=== PATIENT | female | born 1950 | race Two or more races ===

== ENCOUNTER 2021-08-12 02:52 | Inpatient (IN) | payer MEDICARE, OTHER ==
[~2021-08-12] VITALS: Ht 137.2 cm; Wt 81.6 kg
[2021-08-12 04:09] LABS: BASOPHILS % 0.3 % (0.0-2.0); HEMATOCRIT. 40.8 % (36.0-48.0); HEMOGLOBIN. 13.2 g/dL (12.0-16.0); LYMPHOCYTES % 24.2 % (20.0-50.0); MEAN CORPUSCULAR HEMOGLOBIN 25.2 pg (28.0-32.0); MEAN CORPUSCULAR VOLUME 78.1 fL (81.0-99.0); MEAN PLATELET VOLUME 9.1 fl (7.4-10.4); MONOCYTES % 7.9 % (2.0-8.0); NEUTROPHILS % 67.6 % (40.0-76.0); PLATELET 250 x1000/uL (130-400); RED BLOOD CELL COUNT 5.22 mill/uL (4.2-5.4); RED CELL DISTRIBUTION WIDTH 17.1 % (11.6-14.6)
[2021-08-12 04:21] LABS: CHLORIDE 104 mEq/L (98-107)
[2021-08-12] MEDS ORDERED: ENOXAPARIN 100MG/ML SYR SUBCUT NR (05:00)
[2021-08-12] MEDS ORDERED: CEFTRIAXONE 1 G PREMIX 50 ML IV NR (06:00)
[2021-08-12] MEDS ORDERED: AZITHROMYCIN 500MG/250ML 250 ML IV NR (06:30)
[2021-08-12 10:05] VITALS: BP 115/61
[2021-08-12] MEDS ORDERED: CEFTRIAXONE 500 MG in DEXTROSE 5% WATER 50 ML IV SCH (10:45)
[2021-08-12] MEDS ORDERED: TOPUD MT (11:05)
[2021-08-12] MEDS ORDERED: FUROSEMIDE 40MG/4ML VIAL IVP NR (11:54)
[2021-08-12 11:57] VITALS: BP 115/61
[2021-08-12] MEDS ORDERED: AZITHROMYCIN 500MG/250ML 250 ML IV SCH (12:00)
[2021-08-12] MEDS: ASPIRIN 81MG EC TABLET PO SCH (12:08)
[2021-08-12 13:39] LABS: BG BASE EXCESS 0.9 mmol/L (-2.0-2.0); BG CARBOXYHEMOGLOBIN 0.3 % (0.5-1.5); BG FRACTION INSPIRED OXYGEN 100; BG HCO3 ACT 25.7 mmol/L (22.0-26.0); BG METHEMOGLOBIN 0.1 % (0.0-1.5); BG OXYHEMOGLOBIN 95.6 % (94.0-97.0); BG PCO2 41.9 mmHg (35.0-45.0); BG PH 7.406 (7.350-7.450); BG PO2 83.3 mmHg (75.0-100.0); BG SAMPLE SITE LEFT BRACHIAL; BG TOTAL HEMOGLOBIN 13.2 g/dL (12.0-18.0); BG VENT MODE MASK - NRB
[2021-08-12 15:58] VITALS: BP 104/54
[2021-08-12 20:00] VITALS: BP 112/64
[2021-08-12] MEDS: METOPROLOL TARTRATE 25MG TABLET PO SCH (20:16)
[2021-08-12] MEDS: ASCORBIC ACID 500 MG TABLET PO SCH (20:16)
[2021-08-12] MEDS: ENOXAPARIN 80MG/0.8ML SYR SUBCUT SCH (20:17)
[2021-08-12 20:51] LABS: BASOPHILS % 0.2 % (0.0-2.0); EOSINOPHILS % 0.1 % (0.0-5.0); HEMATOCRIT. 37.2 % (36.0-48.0); HEMOGLOBIN. 12.1 g/dL (12.0-16.0); LYMPHOCYTES % 21.3 % (20.0-50.0); MEAN CORPUSCULAR HEMOGLOBIN 25.5 pg (28.0-32.0); MEAN CORPUSCULAR VOLUME 78.5 fL (81.0-99.0); MONOCYTES % 10.1 % (2.0-8.0); NEUTROPHILS % 68.3 % (40.0-76.0); PLATELET 251 x1000/uL (130-400); RED BLOOD CELL COUNT 4.74 mill/uL (4.2-5.4)
[2021-08-12 21:00] LABS: PROTHROMBIN TIME 10.4 sec (9.6-11.0)
[2021-08-12 21:06] LABS: CHLORIDE 107 mEq/L (98-107)
[2021-08-12 21:15] LABS: CREATINE KINASE 732 IU/L (26-192)
[2021-08-12 21:17] LABS: CREATINE KINASE MB FRACTION 7.3 ng/mL (0.5-3.6)
[2021-08-13] VITALS: BP 95/44
[2021-08-13 04:00] VITALS: BP 104/48
[2021-08-13] MEDS: CEFTRIAXONE 1,000 MG in DEXTROSE 5% WATER 50 ML IV SCH (05:11)
[2021-08-13 08:00] VITALS: BP 121/55
[2021-08-13] MEDS: ASCORBIC ACID 500 MG TABLET PO SCH ×2 (08:10→20:36)
[2021-08-13] MEDS: ASPIRIN 81MG EC TABLET PO SCH (08:10)
[2021-08-13] MEDS: DEXAMETHASONE 10 MG/ML VIAL IV SCH (08:10)
[2021-08-13] MEDS: ZINC SULFATE 220 MG ( 50 ) CAPSULE PO SCH (08:10)
[2021-08-13] MEDS: AZITHROMYCIN 500 MG in DEXT 5% WATER 250 ML IV SCH (08:11)
[2021-08-13] MEDS: ENOXAPARIN 80MG/0.8ML SYR SUBCUT SCH ×2 (08:11→20:36)
[2021-08-13] MEDS: METOPROLOL TARTRATE 25MG TABLET PO SCH ×2 (08:11→20:36)
[2021-08-13 08:26] LABS: PROTHROMBIN TIME 10.5 sec (9.6-11.0)
[2021-08-13 11:56] LABS: BG BASE EXCESS 1.6 mmol/L (-2.0-2.0); BG CARBOXYHEMOGLOBIN 0.3 % (0.5-1.5); BG DEOXYHEMOGLOBIN 5.8 % (0.0-5.0); BG FRACTION INSPIRED OXYGEN 60; BG HCO3 ACT 26.3 mmol/L (22.0-26.0); BG METHEMOGLOBIN 0.3 % (0.0-1.5); BG OXYGEN SATURATION 94.2 % (92.0-98.5); BG OXYHEMOGLOBIN 93.6 % (94.0-97.0); BG PCO2 41.8 mmHg (35.0-45.0); BG PH 7.417 (7.350-7.450); BG SAMPLE SITE LEFT RADIAL; BG TOTAL HEMOGLOBIN 13.1 g/dL (12.0-18.0); BG VENT MODE MASK - SIMPLE
[2021-08-13 12:00] VITALS: BP 117/93
[2021-08-13] MEDS: PHENYLEPH/PRAMOXIN/GLYCR/PET RECTAL CREAM 26GM PR SCH ×3 (12:00→23:15)
[2021-08-13 16:00] VITALS: BP 107/66
[2021-08-13 20:00] VITALS: BP 101/56
[2021-08-14] VITALS: BP 112/64
[2021-08-14 04:00] VITALS: BP 107/62
[2021-08-14] MEDS: CEFTRIAXONE 1,000 MG in DEXTROSE 5% WATER 50 ML IV SCH (05:02)
[2021-08-14] MEDS: PHENYLEPH/PRAMOXIN/GLYCR/PET RECTAL CREAM 26GM PR SCH ×3 (05:03→17:03)
[2021-08-14 08:00] VITALS: BP 145/67
[2021-08-14 08:05] LABS: HEMATOCRIT. 34.8 % (36.0-48.0); HEMOGLOBIN. 11.5 g/dL (12.0-16.0); MEAN CORPUSCULAR VOLUME 78.4 fL (81.0-99.0); PLATELET 286 x1000/uL (130-400); RED BLOOD CELL COUNT 4.44 mill/uL (4.2-5.4); RED CELL DISTRIBUTION WIDTH 17.3 % (11.6-14.6)
[2021-08-14 08:28] LABS: CHLORIDE 107 mEq/L (98-107)
[2021-08-14] MEDS: ENOXAPARIN 80MG/0.8ML SYR SUBCUT SCH (09:00)
[2021-08-14] MEDS: ASPIRIN 81MG EC TABLET PO SCH (09:16)
[2021-08-14] MEDS: METOPROLOL TARTRATE 25MG TABLET PO SCH ×2 (09:16→21:21)
[2021-08-14] MEDS: DEXAMETHASONE 10 MG/ML VIAL IV SCH (09:16)
[2021-08-14] MEDS: ZINC SULFATE 220 MG ( 50 ) CAPSULE PO SCH (09:17)
[2021-08-14] MEDS: ASCORBIC ACID 500 MG TABLET PO SCH ×2 (09:17→21:21)
[2021-08-14] MEDS: AZITHROMYCIN 500 MG in DEXT 5% WATER 250 ML IV SCH (09:17)
[2021-08-14 09:27] LABS: BG CARBOXYHEMOGLOBIN 0.5 % (0.5-1.5); BG DEOXYHEMOGLOBIN 5.8 % (0.0-5.0); BG FRACTION INSPIRED OXYGEN 40; BG HCO3 ACT 28.7 mmol/L (22.0-26.0); BG METHEMOGLOBIN 0.3 % (0.0-1.5); BG OXYGEN SATURATION 94.2 % (92.0-98.5); BG OXYHEMOGLOBIN 93.4 % (94.0-97.0); BG PCO2 43.6 mmHg (35.0-45.0); BG PH 7.436 (7.350-7.450); BG PO2 71.4 mmHg (75.0-100.0); BG SAMPLE SITE LEFT RADIAL; BG TOTAL HEMOGLOBIN 12.7 g/dL (12.0-18.0); BG VENT MODE MASK - SIMPLE
[2021-08-14 12:00] VITALS: BP 126/69
[2021-08-14 12:30] LABS: PLATELET ESTIMATE NORMAL
[2021-08-14 16:00] VITALS: BP 131/57
[2021-08-14 20:00] VITALS: BP 154/71
[2021-08-14] MEDS: ENOXAPARIN 40MG/0.4ML SYR SUBCUT SCH (21:20)
[2021-08-15] VITALS (7 sets, daily range): BP systolic 107–154; BP diastolic 47–87
[2021-08-15] MEDS: CEFTRIAXONE 1,000 MG in DEXTROSE 5% WATER 50 ML IV SCH (04:57)
[2021-08-15 05:31] LABS: HEMATOCRIT. 37.2 % (36.0-48.0); HEMOGLOBIN. 12.1 g/dL (12.0-16.0); MEAN CORPUSCULAR HEMOGLOBIN 25.7 pg (28.0-32.0); MEAN CORPUSCULAR VOLUME 78.9 fL (81.0-99.0); MEAN PLATELET VOLUME 8.9 fl (7.4-10.4); PLATELET 332 x1000/uL (130-400); RED BLOOD CELL COUNT 4.72 mill/uL (4.2-5.4); RED CELL DISTRIBUTION WIDTH 17.2 % (11.6-14.6)
[2021-08-15 05:42] LABS: CHLORIDE 107 mEq/L (98-107)
[2021-08-15] MEDS: PHENYLEPH/PRAMOXIN/GLYCR/PET RECTAL CREAM 26GM PR SCH ×4 (06:04→17:11)
[2021-08-15] MEDS: AZITHROMYCIN 500 MG in DEXT 5% WATER 250 ML IV SCH (08:10)
[2021-08-15] MEDS: AMLODIPINE 2.5MG TABLET PO SCH (08:11)
[2021-08-15] MEDS: ASPIRIN 81MG EC TABLET PO SCH (08:11)
[2021-08-15] MEDS: METOPROLOL TARTRATE 25MG TABLET PO SCH ×2 (08:11→21:39)
[2021-08-15] MEDS: DEXAMETHASONE 10 MG/ML VIAL IV SCH (08:11)
[2021-08-15] MEDS: ZINC SULFATE 220 MG ( 50 ) CAPSULE PO SCH (08:11)
[2021-08-15] MEDS: ASCORBIC ACID 500 MG TABLET PO SCH ×2 (08:11→21:39)
[2021-08-15 12:35] LABS: PLATELET ESTIMATE NORMAL
[2021-08-15] MEDS: ENOXAPARIN 40MG/0.4ML SYR SUBCUT SCH (21:40)
[2021-08-16] VITALS: BP 165/73
[2021-08-16] MEDS: CLONIDINE 0.1MG TABLET PO PRN (00:30)
[2021-08-16 04:00] VITALS: BP 133/48
[2021-08-16] MEDS: CEFTRIAXONE 1,000 MG in DEXTROSE 5% WATER 50 ML IV SCH (05:28)
[2021-08-16] MEDS: PHENYLEPH/PRAMOXIN/GLYCR/PET RECTAL CREAM 26GM PR SCH ×3 (05:33→11:51)
[2021-08-16 08:00] VITALS: BP 157/63
[2021-08-16] MEDS: METOPROLOL TARTRATE 25MG TABLET PO SCH ×2 (08:28→21:18)
[2021-08-16] MEDS: DEXAMETHASONE 10 MG/ML VIAL IV SCH (08:28)
[2021-08-16] MEDS: ASPIRIN 81MG EC TABLET PO SCH (08:29)
[2021-08-16] MEDS: ZINC SULFATE 220 MG ( 50 ) CAPSULE PO SCH (08:29)
[2021-08-16] MEDS: AMLODIPINE 2.5MG TABLET PO SCH (08:29)
[2021-08-16] MEDS: ASCORBIC ACID 500 MG TABLET PO SCH ×2 (08:29→21:17)
[2021-08-16] MEDS ORDERED: AZITHROMYCIN 500 MG TABLET PO SCH (09:00)
[2021-08-16 12:00] VITALS: BP 150/75
[2021-08-16 16:00] VITALS: BP 157/78
[2021-08-16 20:07] VITALS: BP 164/79
[2021-08-17] VITALS (7 sets, daily range): BP systolic 111–177; BP diastolic 52–96
[2021-08-17] MEDS: CEFTRIAXONE 1,000 MG in DEXTROSE 5% WATER 50 ML IV SCH (05:25)
[2021-08-17] MEDS: CLONIDINE 0.1MG TABLET PO PRN ×2 (05:40→23:21)
[2021-08-17 06:00] LABS: CLARITY URINE CLOUDY (CLEAR); COLOR URINE ORANGE (YELLOW); KETONES URINE NEGATIVE (NEGATIVE); LEUKOCYTE ESTERASE URINE 1+ (NEGATIVE); NITRITE URINE NEGATIVE (NEGATIVE); OCCULT BLOOD URINE 3+ (NEGATIVE); PH URINE 5.5 (4.5-8.0); PROTEIN URINE 1+ (NEGATIVE); SPECIFIC GRAVITY URINE 1.023 (1.005-1.030); UROBILINOGEN URINE 0.2 E.U./dL (0.2-1.0)
[2021-08-17] MEDS: PHENYLEPH/PRAMOXIN/GLYCR/PET RECTAL CREAM 26GM PR SCH ×4 (06:16→17:17)
[2021-08-17 07:33] LABS: PARTIAL THROMBOPLASTIN TIME 27.1 sec (23.4-31.0); PROTHROMBIN TIME 11.2 sec (9.6-11.0)
[2021-08-17 07:36] LABS: CHLORIDE 108 mEq/L (98-107)
[2021-08-17 07:39] LABS: HEMATOCRIT. 36.3 % (36.0-48.0); HEMOGLOBIN. 12.1 g/dL (12.0-16.0); MEAN CORPUSCULAR VOLUME 77.8 fL (81.0-99.0); MEAN PLATELET VOLUME 8.9 fl (7.4-10.4); PLATELET 396 x1000/uL (130-400); RED BLOOD CELL COUNT 4.67 mill/uL (4.2-5.4); RED CELL DISTRIBUTION WIDTH 16.8 % (11.6-14.6)
[2021-08-17] MEDS: ASPIRIN 81MG EC TABLET PO SCH (08:42)
[2021-08-17] MEDS: ZINC SULFATE 220 MG ( 50 ) CAPSULE PO SCH (08:42)
[2021-08-17] MEDS: ASCORBIC ACID 500 MG TABLET PO SCH ×2 (08:42→20:58)
[2021-08-17] MEDS: AMLODIPINE 2.5MG TABLET PO SCH (08:42)
[2021-08-17] MEDS: METOPROLOL TARTRATE 25MG TABLET PO SCH ×2 (08:43→20:59)
[2021-08-17] MEDS: DEXAMETHASONE 10 MG/ML VIAL IV SCH (09:18)
[2021-08-17 17:42] LABS: PLATELET ESTIMATE NORMAL
[2021-08-18] VITALS: BP 179/83
[2021-08-18 04:00] VITALS: BP 132/72
[2021-08-18] MEDS: PHENYLEPH/PRAMOXIN/GLYCR/PET RECTAL CREAM 26GM PR SCH ×4 (05:39→17:33)
[2021-08-18 06:43] LABS: HEMATOCRIT. 35.6 % (36.0-48.0); HEMOGLOBIN. 12.1 g/dL (12.0-16.0); MEAN CORPUSCULAR HEMOGLOBIN 26.4 pg (28.0-32.0); MEAN CORPUSCULAR VOLUME 77.9 fL (81.0-99.0); MEAN PLATELET VOLUME 8.7 fl (7.4-10.4); PLATELET 416 x1000/uL (130-400); RED BLOOD CELL COUNT 4.57 mill/uL (4.2-5.4); RED CELL DISTRIBUTION WIDTH 17.2 % (11.6-14.6)
[2021-08-18 06:50] LABS: CHLORIDE 106 mEq/L (98-107)
[2021-08-18 08:00] VITALS: BP 187/58
[2021-08-18] MEDS: ZINC SULFATE 220 MG ( 50 ) CAPSULE PO SCH (08:34)
[2021-08-18] MEDS: METOPROLOL TARTRATE 25MG TABLET PO SCH ×2 (08:34→20:50)
[2021-08-18] MEDS: AMLODIPINE 2.5MG TABLET PO SCH (08:35)
[2021-08-18] MEDS: DEXAMETHASONE 10 MG/ML VIAL IV SCH (08:35)
[2021-08-18] MEDS: ASCORBIC ACID 500 MG TABLET PO SCH ×2 (08:35→20:50)
[2021-08-18] MEDS: ASPIRIN 81MG EC TABLET PO SCH (08:35)
[2021-08-18 10:09] LABS: BG BASE EXCESS 4.3 mmol/L (-2.0-2.0); BG CARBOXYHEMOGLOBIN 0.9 % (0.5-1.5); BG DEOXYHEMOGLOBIN 5.8 % (0.0-5.0); BG FRACTION INSPIRED OXYGEN 32; BG HCO3 ACT 28.5 mmol/L (22.0-26.0); BG METHEMOGLOBIN 0.3 % (0.0-1.5); BG OXYGEN SATURATION 94.1 % (92.0-98.5); BG PO2 68.8 mmHg (75.0-100.0); BG SAMPLE SITE LEFT BRACHIAL; BG TOTAL HEMOGLOBIN 13.6 g/dL (12.0-18.0); BG VENT MODE NASAL CANNULA
[2021-08-18 12:00] VITALS: BP 155/82
[2021-08-18 13:42] LABS: PLATELET ESTIMATE SLIGHTLY INCREASED
[2021-08-18 16:00] VITALS: BP 148/65
[2021-08-18 20:00] VITALS: BP 122/62
[2021-08-19 00:19] VITALS: BP 132/77
[2021-08-19 04:00] VITALS: BP 168/81
[2021-08-19] MEDS: PHENYLEPH/PRAMOXIN/GLYCR/PET RECTAL CREAM 26GM PR SCH ×4 (05:47→17:51)
[2021-08-19] MEDS: CLONIDINE 0.1MG TABLET PO PRN (05:47)
[2021-08-19 07:01] LABS: HEMATOCRIT. 38.5 % (36.0-48.0); HEMOGLOBIN. 12.9 g/dL (12.0-16.0); MEAN CORPUSCULAR HEMOGLOBIN 26.2 pg (28.0-32.0); MEAN PLATELET VOLUME 8.5 fl (7.4-10.4); PLATELET 514 x1000/uL (130-400); RED BLOOD CELL COUNT 4.93 mill/uL (4.2-5.4)
[2021-08-19 08:00] VITALS: BP 154/74
[2021-08-19 09:00] LABS: CHLORIDE 104 mEq/L (98-107)
[2021-08-19] MEDS: ASCORBIC ACID 500 MG TABLET PO SCH ×2 (09:19→22:00)
[2021-08-19] MEDS: METOPROLOL TARTRATE 25MG TABLET PO SCH ×2 (09:19→22:01)
[2021-08-19] MEDS: DEXAMETHASONE 10 MG/ML VIAL IV SCH (09:19)
[2021-08-19] MEDS: AMLODIPINE 2.5MG TABLET PO SCH (09:19)
[2021-08-19] MEDS: ZINC SULFATE 220 MG ( 50 ) CAPSULE PO SCH (09:19)
[2021-08-19] MEDS: ASPIRIN 81MG EC TABLET PO SCH (09:19)
[2021-08-19 12:00] VITALS: BP 134/68
[2021-08-19 13:00] LABS: BG BASE EXCESS 3.8 mmol/L (-2.0-2.0); BG CARBOXYHEMOGLOBIN 0.7 % (0.5-1.5); BG DEOXYHEMOGLOBIN 8.1 % (0.0-5.0); BG FRACTION INSPIRED OXYGEN 21; BG HCO3 ACT 27.3 mmol/L (22.0-26.0); BG METHEMOGLOBIN 0.1 % (0.0-1.5); BG OXYGEN SATURATION 91.8 % (92.0-98.5); BG OXYHEMOGLOBIN 91.1 % (94.0-97.0); BG PCO2 37.5 mmHg (35.0-45.0); BG PO2 59.7 mmHg (75.0-100.0); BG SAMPLE SITE LEFT BRACHIAL; BG TOTAL HEMOGLOBIN 13.6 g/dL (12.0-18.0); BG VENT MODE ROOM AIR
[2021-08-19 15:21] LABS: PLATELET ESTIMATE INCREASED
[2021-08-19 16:00] VITALS: BP 142/88
[2021-08-19 20:00] VITALS: BP 148/78
[2021-08-19] MEDS ORDERED: AMLO2.5T45 PO (21:01)
[2021-08-19] MEDS ORDERED: METO25TA6 PO (21:01)
[2021-08-19] MEDS ORDERED: ASPI-1406 PO (21:01)
[2021-08-19] MEDS ORDERED: PRED10TA23 PO (21:01)
[2021-08-20] VITALS: BP 138/70
[2021-08-20 04:00] VITALS: BP 155/74
[2021-08-20] MEDS: PHENYLEPH/PRAMOXIN/GLYCR/PET RECTAL CREAM 26GM PR SCH ×4 (06:00→18:21)
[2021-08-20 08:00] VITALS: BP 111/43
[2021-08-20] MEDS: DEXAMETHASONE 10 MG/ML VIAL IV SCH (08:27)
[2021-08-20] MEDS: ASCORBIC ACID 500 MG TABLET PO SCH ×2 (08:32→20:59)
[2021-08-20] MEDS: ZINC SULFATE 220 MG ( 50 ) CAPSULE PO SCH (08:32)
[2021-08-20] MEDS: ASPIRIN 81MG EC TABLET PO SCH (08:32)
[2021-08-20] MEDS: AMLODIPINE 2.5MG TABLET PO SCH (08:33)
[2021-08-20] MEDS: METOPROLOL TARTRATE 25MG TABLET PO SCH ×2 (08:33→20:59)
[2021-08-20 12:00] VITALS: BP 95/63
[2021-08-20 16:00] VITALS: BP 137/62
[2021-08-20 20:00] VITALS: BP 165/70
[2021-08-21] VITALS: BP 149/73
[2021-08-21 04:00] VITALS: BP 160/50
[2021-08-21] MEDS: PHENYLEPH/PRAMOXIN/GLYCR/PET RECTAL CREAM 26GM PR SCH ×5 (05:13→23:53)
[2021-08-21 08:00] VITALS: BP 171/68
[2021-08-21] MEDS: DEXAMETHASONE 10 MG/ML VIAL IV SCH (08:57)
[2021-08-21] MEDS: METOPROLOL TARTRATE 25MG TABLET PO SCH ×2 (08:57→21:43)
[2021-08-21] MEDS: ZINC SULFATE 220 MG ( 50 ) CAPSULE PO SCH (08:58)
[2021-08-21] MEDS: ASPIRIN 81MG EC TABLET PO SCH (08:58)
[2021-08-21] MEDS: ASCORBIC ACID 500 MG TABLET PO SCH ×2 (08:58→21:43)
[2021-08-21] MEDS: AMLODIPINE 2.5MG TABLET PO SCH (08:58)
[2021-08-21 12:00] VITALS: BP 144/61
[2021-08-21 16:00] VITALS: BP 107/51
[2021-08-21 20:18] VITALS: BP 123/46
[2021-08-22] VITALS: BP 131/52
[2021-08-22 04:00] VITALS: BP 151/60
[2021-08-22] MEDS: PHENYLEPH/PRAMOXIN/GLYCR/PET RECTAL CREAM 26GM PR SCH ×3 (06:09→18:00)
[2021-08-22 08:00] VITALS: BP 163/79
[2021-08-22] MEDS: METOPROLOL TARTRATE 25MG TABLET PO SCH ×2 (09:32→21:28)
[2021-08-22] MEDS: DEXAMETHASONE 10 MG/ML VIAL IV SCH (09:32)
[2021-08-22] MEDS: ASPIRIN 81MG EC TABLET PO SCH (09:32)
[2021-08-22] MEDS: ASCORBIC ACID 500 MG TABLET PO SCH ×2 (09:33→21:28)
[2021-08-22] MEDS: ZINC SULFATE 220 MG ( 50 ) CAPSULE PO SCH (09:33)
[2021-08-22] MEDS: AMLODIPINE 2.5MG TABLET PO SCH (09:33)
[2021-08-22 12:00] VITALS: BP 116/65
[2021-08-22 14:30] LABS: BG BASE EXCESS 0.3 mmol/L (-2.0-2.0); BG CARBOXYHEMOGLOBIN 1.1 % (0.5-1.5); BG DEOXYHEMOGLOBIN 6.6 % (0.0-5.0); BG FRACTION INSPIRED OXYGEN 21; BG METHEMOGLOBIN 0.1 % (0.0-1.5); BG OXYGEN SATURATION 93.3 % (92.0-98.5); BG OXYHEMOGLOBIN 92.2 % (94.0-97.0); BG PH 7.442 (7.350-7.450); BG PO2 66.8 mmHg (75.0-100.0); BG SAMPLE SITE RIGHT BRACHIAL; BG TOTAL HEMOGLOBIN 14.4 g/dL (12.0-18.0); BG VENT MODE ROOM AIR
[2021-08-22 16:00] VITALS: BP 106/72
[2021-08-22 20:00] VITALS: BP 116/57
[2021-08-22] MEDS: AMLODIPINE 5MG TABLET PO SCH (21:27)
[2021-08-23] VITALS: BP 140/53
[2021-08-23] MEDS: PHENYLEPH/PRAMOXIN/GLYCR/PET RECTAL CREAM 26GM PR SCH ×4 (00:28→17:01)
[2021-08-23 04:00] VITALS: BP 116/55
[2021-08-23 08:00] VITALS: BP_SYST 139; BP_SYST 157; BP_DIAS 51; BP_DIAS 72
[2021-08-23] MEDS: ASPIRIN 81MG EC TABLET PO SCH (08:26)
[2021-08-23] MEDS: AMLODIPINE 5MG TABLET PO SCH ×2 (08:26→21:00)
[2021-08-23] MEDS: METOPROLOL TARTRATE 25MG TABLET PO SCH ×2 (08:26→21:00)
[2021-08-23] MEDS: ASCORBIC ACID 500 MG TABLET PO SCH ×2 (08:27→21:05)
[2021-08-23] MEDS: ZINC SULFATE 220 MG ( 50 ) CAPSULE PO SCH (08:27)
[2021-08-23] MEDS: DEXAMETHASONE 10 MG/ML VIAL IV SCH (08:27)
[2021-08-23 12:00] VITALS: BP 157/72
[2021-08-23 16:00] VITALS: BP 108/49
[2021-08-23 20:00] VITALS: BP 104/51
[2021-08-24] VITALS (7 sets, daily range): BP systolic 92–131; BP diastolic 42–61
[2021-08-24] MEDS: PHENYLEPH/PRAMOXIN/GLYCR/PET RECTAL CREAM 26GM PR SCH ×5 (01:20→23:48)
[2021-08-24 06:51] LABS: BASOPHILS % 0.1 % (0.0-2.0); HEMOGLOBIN. 13.5 g/dL (12.0-16.0); LYMPHOCYTES % 8.1 % (20.0-50.0); MEAN PLATELET VOLUME 9.1 fl (7.4-10.4); MONOCYTES % 7.1 % (2.0-8.0); NEUTROPHILS % 84.7 % (40.0-76.0); PLATELET 517 x1000/uL (130-400); RED BLOOD CELL COUNT 5.19 mill/uL (4.2-5.4); RED CELL DISTRIBUTION WIDTH 17.4 % (11.6-14.6)
[2021-08-24 07:05] LABS: CHLORIDE 105 mEq/L (98-107)
[2021-08-24] MEDS: AMLODIPINE 5MG TABLET PO SCH ×2 (09:00→21:00)
[2021-08-24] MEDS: METOPROLOL TARTRATE 25MG TABLET PO SCH ×2 (09:00→21:00)
[2021-08-24] MEDS: ASCORBIC ACID 500 MG TABLET PO SCH ×2 (10:50→21:24)
[2021-08-24] MEDS: ZINC SULFATE 220 MG ( 50 ) CAPSULE PO SCH (10:50)
[2021-08-24] MEDS: METHYLPREDNISOLONE SOD SUCC 40 MG/ML VIAL IV SCH (10:50)
[2021-08-24] MEDS: ASPIRIN 81MG EC TABLET PO SCH (10:50)
[2021-08-25] MEDS: ACETAMINOPHEN 325MG TABLET PO PRN (00:11)
[2021-08-25 04:00] VITALS: BP 94/43
[2021-08-25] MEDS: PHENYLEPH/PRAMOXIN/GLYCR/PET RECTAL CREAM 26GM PR SCH ×3 (05:16→18:00)
[2021-08-25 07:22] LABS: HEMATOCRIT. 39.7 % (36.0-48.0); HEMOGLOBIN. 12.8 g/dL (12.0-16.0); MEAN CORPUSCULAR HEMOGLOBIN 25.7 pg (28.0-32.0); MEAN CORPUSCULAR VOLUME 79.6 fL (81.0-99.0); MEAN PLATELET VOLUME 9.3 fl (7.4-10.4); PLATELET 415 x1000/uL (130-400); RED BLOOD CELL COUNT 4.99 mill/uL (4.2-5.4); RED CELL DISTRIBUTION WIDTH 17.5 % (11.6-14.6)
[2021-08-25 08:07] VITALS: BP 116/65
[2021-08-25] MEDS: METOPROLOL TARTRATE 25MG TABLET PO SCH ×2 (08:14→21:00)
[2021-08-25] MEDS: ZINC SULFATE 220 MG ( 50 ) CAPSULE PO SCH (08:14)
[2021-08-25] MEDS: AMLODIPINE 5MG TABLET PO SCH ×2 (08:14→20:51)
[2021-08-25] MEDS: METHYLPREDNISOLONE SOD SUCC 40 MG/ML VIAL IV SCH (08:14)
[2021-08-25] MEDS: ASPIRIN 81MG EC TABLET PO SCH (08:14)
[2021-08-25] MEDS: ASCORBIC ACID 500 MG TABLET PO SCH ×2 (08:15→21:03)
[2021-08-25] MEDS: MEROPENEM 1,000 MG in SODIUM CHLORIDE 0.9% 100 ML IV SCH ×2 (10:20→18:05)
[2021-08-25 12:00] VITALS: BP 97/51
[2021-08-25 15:27] VITALS: BP 121/70
[2021-08-25 16:52] LABS: CLARITY URINE CLOUDY (CLEAR); COLOR URINE DARK YELLOW (YELLOW); KETONES URINE TRACE (NEGATIVE); LEUKOCYTE ESTERASE URINE 1+ (NEGATIVE); NITRITE URINE NEGATIVE (NEGATIVE); OCCULT BLOOD URINE NEGATIVE (NEGATIVE); PROTEIN URINE 1+ (NEGATIVE); SPECIFIC GRAVITY URINE 1.024 (1.005-1.030); UROBILINOGEN URINE 0.2 E.U./dL (0.2-1.0)
[2021-08-25 17:10] LABS: PLATELET ESTIMATE INCREASED
[2021-08-25 23:05] VITALS: BP 106/43
[2021-08-26] MEDS: MEROPENEM 1,000 MG in SODIUM CHLORIDE 0.9% 100 ML IV SCH ×3 (02:21→17:14)
[2021-08-26] MEDS: PHENYLEPH/PRAMOXIN/GLYCR/PET RECTAL CREAM 26GM PR SCH ×5 (02:22→23:12)
[2021-08-26 04:00] VITALS: BP 132/62
[2021-08-26 08:00] LABS: HEMOGLOBIN. 12.8 g/dL (12.0-16.0); MEAN CORPUSCULAR VOLUME 79.4 fL (81.0-99.0); MEAN PLATELET VOLUME 9.1 fl (7.4-10.4); PLATELET 382 x1000/uL (130-400); RED BLOOD CELL COUNT 4.91 mill/uL (4.2-5.4); RED CELL DISTRIBUTION WIDTH 17.8 % (11.6-14.6)
[2021-08-26 08:03] VITALS: BP 123/60
[2021-08-26 08:15] LABS: CHLORIDE 106 mEq/L (98-107)
[2021-08-26] MEDS: AMLODIPINE 5MG TABLET PO SCH ×2 (08:47→20:38)
[2021-08-26] MEDS: ASPIRIN 81MG EC TABLET PO SCH (08:47)
[2021-08-26] MEDS: ZINC SULFATE 220 MG ( 50 ) CAPSULE PO SCH (08:48)
[2021-08-26] MEDS: ASCORBIC ACID 500 MG TABLET PO SCH ×2 (08:48→20:40)
[2021-08-26] MEDS: METOPROLOL TARTRATE 25MG TABLET PO SCH ×2 (08:48→20:38)
[2021-08-26 11:45] VITALS: BP 126/58
[2021-08-26 15:22] VITALS: BP 129/65
[2021-08-26 19:15] LABS: PLATELET ESTIMATE NORMAL
[2021-08-26 20:00] VITALS: BP 111/47
[2021-08-27] VITALS: BP 126/52
[2021-08-27] MEDS: MEROPENEM 1,000 MG in SODIUM CHLORIDE 0.9% 100 ML IV SCH ×3 (02:16→18:21)
[2021-08-27 04:00] VITALS: BP 139/91
[2021-08-27 08:00] VITALS: BP 95/43
[2021-08-27 08:39] LABS: HEMATOCRIT. 38.1 % (36.0-48.0); HEMOGLOBIN. 12.2 g/dL (12.0-16.0); MEAN CORPUSCULAR HEMOGLOBIN 25.7 pg (28.0-32.0); MEAN CORPUSCULAR VOLUME 80.1 fL (81.0-99.0); MEAN PLATELET VOLUME 9.4 fl (7.4-10.4); PLATELET 344 x1000/uL (130-400); RED BLOOD CELL COUNT 4.75 mill/uL (4.2-5.4); RED CELL DISTRIBUTION WIDTH 18.2 % (11.6-14.6)
[2021-08-27 08:44] LABS: CHLORIDE 106 mEq/L (98-107)
[2021-08-27] MEDS: METOPROLOL TARTRATE 25MG TABLET PO SCH ×2 (09:00→21:00)
[2021-08-27] MEDS: AMLODIPINE 5MG TABLET PO SCH ×2 (09:00→21:00)
[2021-08-27 09:07] LABS: PLATELET ESTIMATE NORMAL
[2021-08-27] MEDS: ASPIRIN 81MG EC TABLET PO SCH (10:18)
[2021-08-27] MEDS: ZINC SULFATE 220 MG ( 50 ) CAPSULE PO SCH (10:18)
[2021-08-27] MEDS: ASCORBIC ACID 500 MG TABLET PO SCH ×2 (10:19→21:00)
[2021-08-27 12:00] VITALS: BP 123/56
[2021-08-27] MEDS: PHENYLEPH/PRAMOXIN/GLYCR/PET RECTAL CREAM 26GM PR SCH ×3 (12:33→23:18)
[2021-08-27 16:00] VITALS: BP 127/52
[2021-08-27 20:00] VITALS: BP 104/78
[2021-08-28] VITALS: BP 124/61
[2021-08-28] MEDS: MEROPENEM 1,000 MG in SODIUM CHLORIDE 0.9% 100 ML IV SCH ×3 (02:37→18:00)
[2021-08-28 04:00] VITALS: BP 133/63
[2021-08-28] MEDS: PHENYLEPH/PRAMOXIN/GLYCR/PET RECTAL CREAM 26GM PR SCH ×4 (05:25→23:31)
[2021-08-28 08:00] VITALS: BP 123/57
[2021-08-28] MEDS: AMLODIPINE 5MG TABLET PO SCH ×2 (08:41→21:00)
[2021-08-28] MEDS: ASCORBIC ACID 500 MG TABLET PO SCH ×2 (08:41→21:00)
[2021-08-28] MEDS: ASPIRIN 81MG EC TABLET PO SCH (08:41)
[2021-08-28] MEDS: ZINC SULFATE 220 MG ( 50 ) CAPSULE PO SCH (08:41)
[2021-08-28] MEDS: METOPROLOL TARTRATE 25MG TABLET PO SCH ×2 (08:42→21:00)
[2021-08-28 12:00] VITALS: BP 106/45
[2021-08-28 13:18] LABS: BASOPHILS % 0.1 % (0.0-2.0); EOSINOPHILS % 0.3 % (0.0-5.0); HEMATOCRIT. 38.3 % (36.0-48.0); HEMOGLOBIN. 12.2 g/dL (12.0-16.0); MEAN CORPUSCULAR HEMOGLOBIN 25.4 pg (28.0-32.0); MEAN CORPUSCULAR VOLUME 79.3 fL (81.0-99.0); MEAN PLATELET VOLUME 9.3 fl (7.4-10.4); MONOCYTES % 5.6 % (2.0-8.0); PLATELET 353 x1000/uL (130-400); RED BLOOD CELL COUNT 4.83 mill/uL (4.2-5.4); RED CELL DISTRIBUTION WIDTH 18.1 % (11.6-14.6)
[2021-08-28 13:22] LABS: CHLORIDE 107 mEq/L (98-107)
[2021-08-28 16:00] VITALS: BP 136/50
[2021-08-28 20:00] VITALS: BP 108/54
[2021-08-29] VITALS: BP 145/69
[2021-08-29] MEDS: MEROPENEM 1,000 MG in SODIUM CHLORIDE 0.9% 100 ML IV SCH ×3 (02:34→19:48)
[2021-08-29 04:00] VITALS: BP 139/61
[2021-08-29] MEDS: PHENYLEPH/PRAMOXIN/GLYCR/PET RECTAL CREAM 26GM PR SCH ×3 (05:14→23:16)
[2021-08-29 08:00] VITALS: BP 138/67
[2021-08-29] MEDS: ASCORBIC ACID 500 MG TABLET PO SCH ×2 (09:32→20:21)
[2021-08-29] MEDS: ZINC SULFATE 220 MG ( 50 ) CAPSULE PO SCH (09:32)
[2021-08-29] MEDS: ASPIRIN 81MG EC TABLET PO SCH (09:32)
[2021-08-29] MEDS: AMLODIPINE 5MG TABLET PO SCH ×2 (09:33→20:22)
[2021-08-29] MEDS: METOPROLOL TARTRATE 25MG TABLET PO SCH ×2 (09:33→20:21)
[2021-08-29 12:00] VITALS: BP 124/73
[2021-08-29 16:00] VITALS: BP 130/79
[2021-08-29 20:00] VITALS: BP 125/46
[2021-08-30] VITALS: BP 144/66
[2021-08-30] MEDS: MEROPENEM 1,000 MG in SODIUM CHLORIDE 0.9% 100 ML IV SCH (03:59)
[2021-08-30 04:00] VITALS: BP 127/58
[2021-08-30] MEDS: PHENYLEPH/PRAMOXIN/GLYCR/PET RECTAL CREAM 26GM PR SCH ×3 (05:41→17:24)
[2021-08-30 08:00] VITALS: BP 116/51
[2021-08-30] MEDS: ASCORBIC ACID 500 MG TABLET PO SCH ×2 (09:17→21:35)
[2021-08-30] MEDS: ZINC SULFATE 220 MG ( 50 ) CAPSULE PO SCH (09:17)
[2021-08-30] MEDS: AMLODIPINE 5MG TABLET PO SCH ×2 (09:18→21:00)
[2021-08-30] MEDS: METOPROLOL TARTRATE 25MG TABLET PO SCH ×2 (09:18→21:00)
[2021-08-30] MEDS: ASPIRIN 81MG EC TABLET PO SCH (09:18)
[2021-08-30 12:00] VITALS: BP 141/61
[2021-08-30 16:00] VITALS: BP 139/59
[2021-08-30 20:00] VITALS: BP 125/51
[2021-08-31] VITALS: BP 137/55
[2021-08-31] MEDS: PHENYLEPH/PRAMOXIN/GLYCR/PET RECTAL CREAM 26GM PR SCH ×5 (00:43→17:25)
[2021-08-31] MEDS: ACETAMINOPHEN 325MG TABLET PO PRN (00:49)
[2021-08-31 04:00] VITALS: BP 111/63
[2021-08-31 08:00] VITALS: BP 132/53
[2021-08-31] MEDS: ASCORBIC ACID 500 MG TABLET PO SCH ×2 (09:26→21:20)
[2021-08-31] MEDS: ZINC SULFATE 220 MG ( 50 ) CAPSULE PO SCH (09:26)
[2021-08-31] MEDS: METOPROLOL TARTRATE 25MG TABLET PO SCH ×2 (09:26→21:20)
[2021-08-31] MEDS: ASPIRIN 81MG EC TABLET PO SCH (09:26)
[2021-08-31] MEDS: AMLODIPINE 5MG TABLET PO SCH ×2 (09:27→21:20)
[2021-08-31 12:00] VITALS: BP 122/71
[2021-08-31] MEDS: LOPERAMIDE HCL 2MG CAPSULE PO PRN ×2 (13:15→21:19)
[2021-08-31 16:00] VITALS: BP 121/67
[2021-08-31 20:00] VITALS: BP 114/31
[2021-09-01] VITALS: BP 120/52
[2021-09-01] MEDS: PHENYLEPH/PRAMOXIN/GLYCR/PET RECTAL CREAM 26GM PR SCH ×4 (00:56→17:37)
[2021-09-01 04:00] VITALS: BP 127/58
[2021-09-01 08:00] VITALS: BP 118/55
[2021-09-01] MEDS: ASCORBIC ACID 500 MG TABLET PO SCH ×2 (08:50→22:06)
[2021-09-01] MEDS: ZINC SULFATE 220 MG ( 50 ) CAPSULE PO SCH (08:50)
[2021-09-01] MEDS: ASPIRIN 81MG EC TABLET PO SCH (08:50)
[2021-09-01] MEDS: LOPERAMIDE HCL 2MG CAPSULE PO PRN ×3 (08:50→22:14)
[2021-09-01] MEDS: METOPROLOL TARTRATE 25MG TABLET PO SCH ×2 (08:50→22:08)
[2021-09-01] MEDS: AMLODIPINE 5MG TABLET PO SCH ×2 (08:52→22:10)
[2021-09-01 09:02] LABS: BASOPHILS % 0.3 % (0.0-2.0); HEMATOCRIT. 37.1 % (36.0-48.0); HEMOGLOBIN. 12.2 g/dL (12.0-16.0); LYMPHOCYTES % 14.1 % (20.0-50.0); MEAN CORPUSCULAR HEMOGLOBIN 25.8 pg (28.0-32.0); MEAN CORPUSCULAR VOLUME 78.5 fL (81.0-99.0); MEAN PLATELET VOLUME 8.8 fl (7.4-10.4); MONOCYTES % 8.3 % (2.0-8.0); NEUTROPHILS % 75.3 % (40.0-76.0); PLATELET 251 x1000/uL (130-400); RED BLOOD CELL COUNT 4.73 mill/uL (4.2-5.4); RED CELL DISTRIBUTION WIDTH 17.5 % (11.6-14.6)
[2021-09-01 09:33] LABS: CHLORIDE 106 mEq/L (98-107)
[2021-09-01 12:00] VITALS: BP 125/51
[2021-09-01 16:00] VITALS: BP 114/49
[2021-09-01] MEDS: AZITHROMYCIN 500 MG TABLET PO SCH (17:28)
[2021-09-01] MEDS: VANCOMYCIN 1000MG/20ML ORAL SOLN PO SCH (17:29)
[2021-09-01 20:00] VITALS: BP 124/60
[2021-09-01] MEDS ORDERED: ATORVASTATIN CALCIUM 20MG TABLET PO SCH (21:00)
[2021-09-02] VITALS (7 sets, daily range): BP systolic 97–117; BP diastolic 48–90
[2021-09-02] MEDS: PHENYLEPH/PRAMOXIN/GLYCR/PET RECTAL CREAM 26GM PR SCH ×4 (01:07→17:48)
[2021-09-02] MEDS: VANCOMYCIN 1000MG/20ML ORAL SOLN PO SCH ×4 (01:08→17:48)
[2021-09-02] MEDS: ASPIRIN 81MG EC TABLET PO SCH (08:57)
[2021-09-02] MEDS: AMLODIPINE 5MG TABLET PO SCH (08:58)
[2021-09-02] MEDS: METOPROLOL TARTRATE 25MG TABLET PO SCH (08:58)
[2021-09-02] MEDS: ZINC SULFATE 220 MG ( 50 ) CAPSULE PO SCH (08:58)
[2021-09-02] MEDS: ASCORBIC ACID 500 MG TABLET PO SCH (08:58)
[2021-09-02] MEDS: LOPERAMIDE HCL 2MG CAPSULE PO PRN (08:58)
[2021-09-02] MEDS: AZITHROMYCIN 500 MG TABLET PO SCH (17:48)
== END 2021-09-02 20:17 | DRG 720 ==
LOC: ER 02:52 → MICUSO 04:58 → EDBEDREQ 05:01 → EDBEDREQTM 05:01 → EDBEDREQSVC 05:01 → 7WST 10:07 → 7EST 08-23 11:33 → 8WST 08-23 21:59
PROVIDERS: ADMIT Internal Medicine; ATTEND Internal Medicine
DX: A41.89 Other specified sepsis (principal); J96.01 Acute respiratory failure with hypoxia; J12.82 Pneumonia due to coronavirus disease 2019; U07.1 COVID-19; A04.72 Enterocolitis due to Clostridium difficile, not specified as recurrent; I50.9 Heart failure, unspecified; I51.4 Myocarditis, unspecified; R74.01 Elevation of levels of liver transaminase levels; E66.01 Morbid (severe) obesity due to excess calories; I48.0 Paroxysmal atrial fibrillation; Z68.41 Body mass index [BMI] 40.0-44.9, adult; Z79.1 Long term (current) use of non-steroidal anti-inflammatories (NSAID); Z79.899 Other long term (current) drug therapy; Z28.3 Underimmunization status; I21.A1 Myocardial infarction type 2; R31.9 Hematuria, unspecified
CPT/HCPCS: 36415; 36600; 71045; 80048; 80053; 80061; 81003; 82375; 82550; 82553; 82805; 83036; 83605; 83735; 83880; 84145; 84443; 84484; 85025; 86140; 87015; 87045; 87426; 87427; 87449; 87493; 93005; 93306; 97116; 97162; 97166; 97530; 99291; A6261; J0456; J0696; J1100; J1650; J1940; J2185; J2920; J3370; J7040; J7050; J7060; A4315

== ENCOUNTER 2022-11-04 13:02 | Emergency (ER) | payer MEDICARE, OTHER ==
[~2022-11-04] VITALS: Ht 154.9 cm; Wt 85.0 kg
[~2022-11-04 13:02] MED LIST: AMLO2.5T45 PO; ASPI-1406 PO; METO25TA6 PO; PRED10TA23 PO; TOPUD MT
[2022-11-04] MEDS ORDERED: TRAMADOL 50MG TABLET PO ONE (13:30)
[2022-11-04] MEDS ORDERED: IBUPROFEN 400MG TABLET PO ONE (13:30)
[2022-11-04 14:57] VITALS: BP 148/84
[2022-11-04] MEDS ORDERED: MELO-105 MT (15:14)
== END 2022-11-04 16:06 | disposition home or self-care (01) ==
LOC: ER 13:02
DX: M25.552 Pain in left hip (principal); I10 Essential (primary) hypertension; Z98.890 Other specified postprocedural states
CPT/HCPCS: 73502; 99283